=== PATIENT | female | born 1945 | race Caucasian/White ===

== ENCOUNTER 2024-01-12 11:37 | Inpatient (IN) | payer OTHER, SELFPAY ==
[2024-01-12] VITALS (11 sets, daily range): BP systolic 115–174; BP diastolic 47–80; BMI 23.0
--- NOTE | 2024-01-12 05:19 | ED.GENMED ---
History of Present Illness
General
Chief Complaint: Extremity Pain (non-traumatic)
Source: patient
Exam Limitations: none
Time Seen by Provider: 01/12/24 04:17
Nursing documentation reviewed up to this point in time: agreed with
Travel History
Have you had any contact with someone who has COVID-19?: No
Do you have any symptoms of coronavirus? Fever > 100 degrees, chills, cough, shortness of breath, sore throat, loss of taste or smell, muscle aches, or headache?: No
History of Present Illness
History of Present Illness:
78-year-old female with a past medical history notable for breast cancer with metastasis to the lung who presents for evaluation of chest pain and shortness of breath. Patient reports that she woke up from sleep around 2:30 AM with tingling in her
right arm that lasted for a few minutes and resolved. After that she developed a pressure sensation in her chest and some shortness of breath associated with some nausea. She says that the symptoms were persisting and so she decided to come to the
emergency room to be assessed. She says they have improved somewhat but have not completely resolved. She denies any recent cough or fevers/chills. No swelling or pain in the legs. Abdominal pain, vomiting, diarrhea. She denies any other
complaints.
Review of Systems
Review of Systems
All Other Systems: ROS reviewed and negative except as documented in HPI and ROS
Constitutional: Denies fever or chills
Respiratory: Reports trouble breathing; Denies cough
Cardiac: Reports chest pain; Denies diaphoresis, palpitations or syncope
ABD/GI: Reports nausea; Denies abdominal pain, vomiting or diarrhea
: Denies flank pain
Musculoskeletal: Denies neck pain or back pain
Neurological: Denies dizzy, headache, weakness or numbness
Phy Exam
Physical Exam
Physical Exam:
General: Awake, alert, oriented x3; anxious but no acute distress
Head: Normocephalic, atraumatic
Eyes: Conjunctiva normal, sclera anicteric
Throat: Airway intact, handling secretions
Neck: Trachea midline, supple without meningismus
Lungs: Clear to auscultation bilaterally, no wheezing, rales, rhonchi
Heart: Regular rate and rhythm, no murmurs, gallops, or rubs
Abd: Soft, non distended, nontender
Neuro: Cranial nerves grossly intact, speech fluid
Skin: no rash
Extremities: No edema in extremities, equal pulses in all extremities
Scores
Heart Failure Risk
Heart Failure Risk Score: Not Applicable
Heart Score for Chest Pain Patients
STEMI patient?: No
History: Slightly or Non-Suspicious
ECG: Normal
Age: >/= 65 years
Risk Factors: 1 or 2 Risk Factors
Troponin: </= Normal Limit
Heart Score for Chest Pain Patients: 3
Heart Score Risk: 2.5% MACE over next 6 weeks
PE Wells Score
Symptoms of DVT: No
No alternative diagnosis better explains the illness: No
Tachycardia with pulse > 100: No
Immobilization (>=3 days) or surgery within previous 4 weeks: No
Prior history of DVT or pulmonary embolism: No
Presence of hemoptysis: No
Presence of malignancy: Yes
Pulmonary Embolism Risk Score: 1
Probability of PE: Pt is low risk
Withdrawal Assessment of Alcohol
Withdrawal Assessment Completed?: Not applicable
Course
Orders/Labs/Results
Orders:
Orders
01/12/24 04:13
Electrocardiogram (*1) Urgent
Reason for Study: Chest Pain
EKG- Treatment ONCE
01/12/24 04:41
CT Chest Pe Study Urgent
Comment:
Reason For Exam: acute onset SOB, PMH lung ca
01/12/24 04:47
CXR2 [CR Chest - 2 Views ] Urgent
Comment:
Reason For Exam: chest pain
01/12/24 04:56
Complete Blood Count/With Diff Urgent
Comprehensive Metabolic Panel Urgent
D-Dimer Urgent
PTT Urgent
Prothrombin Time Urgent
Troponin I Urgent
01/12/24 06:34
PTT Urgent
Comment: Obtain baseline before beginning heparin infusion if not already collected
Aspirin Chewable [Low Strength Aspirin] 324 mg PO NOW STA
Heparin 3,500 units IV NOW STA
Pharmacy Request to Place See Dose Instructions PO NOW STA
Discontinue all Active Warfarin orders?: Yes
Nursing to Place Non Medication Order As Directed
Physician Order: PTT 6 hours after initial start of Heparin infusion
01/12/24 06:39
CARDIOLOGY CONSULT Urgent
Consulting Provider: Palmer Steward
Was physician already notified: Yes
01/12/24 06:45
Heparin 10821 Units/250 ml 25,000 units in 250 ml IV PER PROTOCOL
Weight to be used for heparin protocol in kilograms (kg):: 58.9
Protocol:: Cardiac Tx/Acute Coronary
PTT Goal Range to be used:: PTT 73 to 111 seconds
Order type:: Initial
INITIAL Infusion Dose (UNITS/KG/hr) & then follow protocol:: 12 units/kg/hr
Infusion Dose in UNITS/hr & then follow protocol (UNITS/hr):: 700
INFUSION RATE in mL/hr & then follow protocol (mL/hr):: 7
PTT less than or equal to 64 seconds:: Increase rate by 200 units/hr (+ 2 mL/hr)
PTT 64.1 to 72.9 seconds:: Increase rate by 100 units/hr (+ 1 mL/hr)
PTT 73 to 111 seconds:: Target Range. No change in rate.
PTT 111.1 to 130.9 seconds:: Decrease rate by 100 units/hr (- 1 mL/hr)
PTT 131 to 199.9 seconds:: HOLD for 1 hr. Then decrease rate by 200 units/hr (- 2 mL/hr)
PTT greater than or equal to 200 seconds:: HOLD for 2 hrs & Notify Provider. Then decrease by 200 units/hr (-
2 mL/hr)
Lab follow-up:: Each change, PTT q6h until 2 consecutive are therapeutic. Then PTT
daily.
01/12/24 07:[address] See Dose Instructions IV DIRECTED
01/12/24 08:00
Troponin I Urgent
Abnormal Lab Results
01/12/24
04:56
WBC 2.6 L 10^3/uL
(4.8-10.8)
RBC 2.78 L 10^6/uL
(4.20-5.40)
Hgb 10.7 L g/dL
(12.0-16.0)
Hct 30.3 L %
(37.0-47.0)
MCV 109.0 H fL
(81.0-99.0)
MCH 38.5 H pg
(27.0-31.0)
Absolute Neuts (auto) 1.2 L 10^3/uL
(1.4-6.5)
Absolute Lymphs (auto) 1.1 L 10^3/uL
(1.2-3.4)
D-Dimer 0.60 H ug/mlFEU
(0.00-0.50)
BUN 29 H mg/dl
(7-17)
Glucose 100 H mg/dl
(70-99)
Troponin I 0.133 H* ng/ml
Total Protein 6.2 L g/dl
(6.3-8.2)
01/12/24 04:56
01/12/24 04:56
Vital Signs
Initial and Last Documented VS:
Initial Vital Signs
Temp Pulse Resp BP Pulse Ox
36.6 C 56 18 174/80 98
01/12/24 04:07 01/12/24 04:07 01/12/24 04:07 01/12/24 04:07 01/12/24 04:07
Last Documented Vital Signs
Temp Pulse Resp BP Pulse Ox
36.6 C 53 12 152/55 99
01/12/24 04:07 01/12/24 06:45 01/12/24 06:45 01/12/24 06:34 01/12/24 06:45
MDM/Problems Addressed
Differential Diagnosis Includes:
ACS, PE, pneumothorax, pneumonia, cancer pain, anxiety/panic attack
MDM/Problems Addressed:
78-year-old female with history as above presents for evaluation of right arm tingling followed by chest pressure and shortness of breath for the past 90 minutes. Hypertensive but otherwise normal vitals here. Physical exam as above. EKG shows no
STEMI. Plan to place an IV check labs clinical CBC and CMP, troponin. She had a chest x-ray out of triage which shows no clear acute pathology; will check CTA to rule out PE. Will monitor on telemetry and continuous pulse oximetry and reassess
after the above.
Labs reviewed: CBC shows slight leukopenia and mild anemia�patient says he is a chronic issues related to her chemotherapy. CMP unremarkable. Patient chest pain-free, continue to monitor.
Lab called back patient's initial troponin elevated at 0.103. Will repeat at 3-hour betsy. CTA no signs of pulmonary embolism or other acute pathology. Concern for NSTEMI will treat with aspirin, heparin. Discussed with cardiology for
consultation. Discussed with hospitalist for admission.
Chronic conditions affecting care:
Metastatic cancer
Acute Exacerbation and/or Progression of Chronic Illness:
Acutely hypertensive improved without intervention continue to monitor but no emergent antihypertensive treatment indicated at present
Acute Exacerbation and/or Progression of Chronic Illness: HTN
*Radiology
Radiology exam reviewed: preliminary read by ED provider and radiology read reviewed
*Pulse Oximetry
Patient hypoxic: no
*EKG
Interpreted by ED Provider?: Yes
Heart Rate: 56
Rate: bradycardiac
Rhythm: sinus
Heth: normal axis
Interval: normal interval
QRS Pattern: normal QRS
Ischemia: no ischemia
*Critical Care Note
Total Time (30-74mins, 75-104mins- exclusive of procedures): Not Applicable
Data Reviewed
Source: patient, records and spouse
Patient Management
Discussion with other providers: Hospitalist (Discussed with hospitalist) and Brand Advocate (Discussed with cardiology)
Escalation/DeEscalation of care consider admission/obs:
Admission indicated
ED Attending Note
-
Portions of this chart may have been created with voice recognition software.� Occasional wrong word or��sound alike� substitutions may have occurred due to the inherent limitations of voice recognition software.
Discharge Plan
Departure
Patient Disposition: Admit
Date of Disposition: 01/12/24
Time of Disposition: 06:59
Admit to doctor: Nabeel
Presentation/result/management discussed w/ accepting MD/DO: Hospitalist
Discharge Problem:
Non-ST elevation MO (NSTEMI)
Prescriptions:
No Action
losartan 50 mg Tablet
50 mg PO DAILY
acetaminophen [Acetaminophen Extra Strength] 500 mg Tablet
500 mg PO QID PRN (Reason: pain)
letrozole 2.5 mg Tablet
2.5 mg PO DAILY
cholecalciferol (vitamin D3) [Vitamin D3] 25 mcg (1,000 unit) Capsule
25 mcg PO DAILY
Ibrance 125 mg Tablet
125 mg PO DAILY
Patient Comments:
21 days on, 7 days off
alprazolam
PO PRN PRN (Reason: anxiety)
Rx Instructions:
unknown dosage
Referrals:
Danielle Jackson MD [Family Provider] -
Interventions
Interventions:
*Risk Screen - Suicide Last Done: 01/12/24 04:07
*General Assessment Last Done: 01/12/24 05:14
*Neglect/Abuse Screening Last Done: 01/12/24 04:07
ED- Fall Risk Assessment Last Done: 01/12/24 06:01
*ED COVID-19 Vaccine History Last Done: 01/12/24 05:14
ED-Skin Assessment Last Done: 01/12/24 06:01
ED-Peripheral Vascular Assessment Last Done: 01/12/24 06:04
ED-Musculoskeletal Assessment Last Done: 01/12/24 06:01
ED- Cardiac Assessment Last Done: 01/12/24 06:01
[2024-01-12 05:35] LABS: % Basophils 1.6 % (0-2); % Eosinophils 1.2 % (0-6); % Lymphocytes 44.5 % (20.5-51.1); % Monocytes 6.6 % (1.7-9.3); % Neutrophils 46.1 % (42.2-75.2); Absolute Lymphocytes 1.1 10^3/uL (1.2-3.4); Absolute Monocytes 0.2 10^3/uL (0.1-0.6); Absolute Neutrophils 1.2 10^3/uL (1.4-6.5); Hematocrit 30.3 % (37.0-47.0); Hemoglobin 10.7 g/dL (12.0-16.0); Mean Corp Hgb Conc. 35.3 g/dL (33.0-37.0); Mean Corpuscular Hgb 38.5 pg (27.0-31.0); Mean Platelet Volume 9.9 fL (7.4-10.4); Nucleated Red Blood Cells % 0 %; Platelet Count 141 10^3/uL (130-400); Red Blood Cell Count 2.78 10^6/uL (4.20-5.40); Red Cell Dist. Width 12.4 % (11.5-14.5); White Blood Cell Count 2.6 10^3/uL (4.8-10.8)
[2024-01-12 05:42] LABS: ALT (SGPT) 14 U/L (0-35); AST (SGOT) 24 U/L (14-36); Albumin 3.8 g/dl (3.5-5.0); Alkaline Phosphatase 50 U/L (38-126); Blood Urea Nitrogen 29 mg/dl (7-17); Calcium 9.6 mg/dl (8.4-10.2); Carbon Dioxide 27 mmol/L (22-30); Chloride 103 mmol/L (98-107); Estimated Creatinine Clearance 49 ml/min; Glucose 100 mg/dl (70-99); Potassium 4.7 mmol/L (3.5-5.1); Sodium 137 mmol/L (135-145); Total Bilirubin 0.5 mg/dl (0.2-1.3); Total Protein 6.2 g/dl (6.3-8.2); eGFR > 60.00
[2024-01-12 05:53] LABS: Troponin I 0.133 ng/ml
[2024-01-12 06:18] LABS: INR 1.11; PT 14.1 Sec (11.4-14.6)
[2024-01-12 06:19] LABS: APTT 30.2 Sec (23.4-35.0)
[2024-01-12] MEDS: LOW STRENGTH ASPIRIN 324 MG PO (07:10)
[2024-01-12] MEDS: HEPARIN 3500 UNITS IV (07:21)
[2024-01-12] MEDS: HEPARIN 25000 UNITS/250 ML IV (07:22)
[2024-01-12 08:25] LABS: Troponin I 0.126 ng/ml
[2024-01-12 08:29] LABS: APTT > 200 Sec (23.4-35.0)
--- NOTE | 2024-01-12 08:55 | EDRN ---
Heparin bolus administered at 07:21 prior to second PTT being drawn at 07:41 and sent to lab which resulted in error of >200, original 05:00 PTT resulted at 30.2 prior to bolus administration. Lab notified.
--- NOTE | 2024-01-12 10:00 | CON.CAR ---
Addendum entered and electronically signed by Beverley Warner DO 01/12/24 13:26:
I saw and examined the patient.
The Workers Compensation Claims Analyst's note was reviewed and I agree with the note.
Comment: Patient is a 78-year-old female with past medical history of history of lumpectomies, diagnosed with breast cancer with mets to lung 2021, receiving ongoing chemotherapy through her oncologist at [place], Dr. Nate Galeano, HTN, anxiety, GERD
who presented to [facility] with complaints of chest discomfort/pressure. She states she initially had the discomfort on Wednesday while doing things around the house. She laid in bed for the rest of the day Wednesday and since has felt well until last
night around 2:30AM when discomfort woke her from sleep. She states this time was different than Wednesday as she then developed some pain down her R arm which she had not had before, causing her to come in. She also reports she had nausea associated
with event. She states the R arm pain lasted at max [address] negative for PE however did show some pneumonitis. Trops flat but elevated at 0.13, resulting in cardiology consultation. Last ischemic evaluation was low risk treadmill stress
test in 2017. No further chest pain during hospital evaluation. No further right arm pain.
General:�NAD in ED 31.
HEENT:�mmm
Respiratory:�Clear (anterolaterally) and Non Labored Respirations
Cardiac:�S1/S2 and Regular Rhythm. / SM. +Port
GI:�Soft, Non Tender, Non Distended and Normal Bowel Sounds
Musculoskeletal:�No Edema
Plan:
Chest discomfort/right arm discomfort of unclear etiology, concern for ischemic etiology
-Currently chest pain-free
-Mildly abnormal cardiac troponin, peak 0.133
-EKG sinus rhythm without acute ischemic changes
-Abnormal D-dimer with negative CTA for PE
-CTA chest also noted no calcific atherosclerotic plaque in the coronary arteries or thoracic aorta and no pericardial effusion. There was no calcification on the aortic valve. There is also an interval decrease in size of a 2.1 cm malignant
pulmonary nodule in the left upper lobe adjacent to the left hilum
-Continue IV heparin drip for 24 hours then discontinue
-Aspirin 81 mg daily
-Lipid profile: Triglycerides 92, LDL 86, HDL 78. Aortic atherosclerosis in the abdominal aorta noted on CT so we will start atorvastatin 10 mg daily
-Check 2D echo
-Inpatient Lexiscan nuclear stress test tomorrow
Breast cancer with recurrence now metastatic to the lung with ongoing chemotherapy through [facility] oncology
-Noted
Addendum entered and electronically signed by Brittani Voss PA-C 01/12/24 11:05:
currently on IV heparin. as pain improved, consider stopping.
on losartan 50mg daily as OP, consider addition of BB as BP will tolerate
Original Note:
Consultation
Consultation Request
Date/Time Consultation Performed: 01/12/24
Requesting Provider: Dr. Jeane Roblero
Performing Provider: Brittani Voss PA-C for Dr. Warner
Reason for Consultation: CP, elevated trop
Medical History
-
Chief Complaint: CP
History of Present Illness:
Patient is a 78-year-old female with past medical history of history of lumpectomies, diagnosed with breast cancer with mets to lung 2021, receiving ongoing chemotherapy through her oncologist at [place], Dr. Nate Galeano, HTN, anxiety, GERD who
presented to [facility] with complaints of chest discomfort/pressure. She states she initially had the discomfort on Wednesday while doing things around the house. She laid in bed for the rest of the day Wednesday and since has felt well until last night
around 2:30AM when discomfort woke her from sleep. She states this time was different than Wednesday as she then developed some pain down her R arm which she had not had before, causing her to come in. She also reports she had nausea associated with
event. She states the R arm pain lasted at max 10 minutes, chest discomfort is largely resolved. Chest CT negative for PE however did show some pneumonitis. Trops flat but elevated at 0.13, resulting in cardiology consultation. Last ischemic
evaluation was low risk treadmill stress test in 2017. She states she had a more recent work up after ER visit for SOB in 2021, but cardiac work up was negative and resulted in imaging showing her cancer. Denies recent changes to chemotherapy.
Currently on IV heparin.
PMH:
Breast cancer with mets to lung, diagnosed 2021, ongoing chemo through Dr. Waleska Mcgill
History of breast lumpectomies
HTN
anxiety
GERD
Past Medical History
Past Medical History: Other (in HPI)
Social History
Tobacco: Former Smoker (remote)
Employment: Retired
Family History
Family History: CAD (father with stent in his 80s) and Cancer
Allergies / Home Medications
Allergy/AdvReac Type Severity Reaction Status Date / Time
coconut Allergy Rash Verified 01/12/24 05:12
Medication Instructions Recorded Confirmed Type
acetaminophen 500 mg tablet 500 mg PO QIDPRN PRN mild pain 03/10/23 01/12/24 History
(Acetaminophen Extra Strength)
cholecalciferol (vitamin D3) 25 25 mcg PO DAILY 03/10/23 01/12/24 History
mcg (1,000 unit) capsule (Vitamin
D3)
letrozole 2.5 mg tablet 2.5 mg PO DAILY 03/10/23 01/12/24 History
losartan 50 mg tablet 50 mg PO DAILY 03/10/23 01/12/24 History
palbociclib 125 mg tablet (Ibrance) 125 mg PO UD 03/10/23 01/12/24 History
alprazolam 0.25 mg tablet (Xanax) 0.25 mg PO DAILYPRN PRN anxiety 01/12/24 01/12/24 History
diphenhydramine HCl 25 mg capsule 25 mg PO HS nasal congestion 01/12/24 01/12/24 History
(Benadryl)
Review of Systems
-
History Source: Patient
All other systems: Negative unless noted
Physical Exam
Vital Signs
Temp Pulse Resp BP Pulse Ox
97.8 F 50 16 137/59 99
01/12/24 04:07 01/12/24 08:30 01/12/24 08:30 01/12/24 08:00 01/12/24 08:30
Lab Results
01/12/24 04:56
01/12/24 04:56
Troponin I 0.126 ng/ml H* 01/12/24 07:41
Physical Exam
General: No Apparent Distress and Comfortable
HEENT: Normocephalic, Anicteric and Moist Mucous Membranes
Respiratory: Clear (anterolaterally) and Non Labored Respirations
Cardiac: S1/S2 and Regular Rhythm
GI: Soft, Non Tender, Non Distended and Normal Bowel Sounds
Musculoskeletal: No Clubbing, No Cyanosis and No Edema
Skin: Warm and Dry
Neuro: AO x 3
Impression / Plan
-
Primary Mold Filler And Drainer: none
Assessment:
Presentation with chest pressure, RUE pain
Elevated troponin
Pneumonitis by chest CT
Breast cancer with mets to lung, diagnosed 2021, ongoing chemo through Dr. Waleska Mcgill
History of breast lumpectomies
HTN
anxiety
GERD
Treadmill stress test 2017: low risk at 8 METS
Plan:
-Patient presents to ER with complaints of chest discomfort/arm pain
-trops elevated but flat in 0.12-0.13 range. chest discomfort largely resolved at present
-EKG SB without acute ST abnormalities
-chest CT negative for PE, with evidence of mild pneumonitis. treatment per primary service
-check echo
-add asa 81mg daily
-check CVE
-consider for ischemic evaluation pending results of echo, possibly as OP
Data Reviewed
-
EKG: Tracing Personally Visualized and interpreted
CT Scan: Report Reviewed by me
Medical Tests (Nuc Med, Echo etc): Report Reviewed by me
Labs: Labs Reviewed by me
Old Records: Reviewed
--- NOTE | 2024-01-12 10:40 | HPS.HSE ---
Family Physician
-
Family Physician: Danielle Jackson
Chief Complaint
-
Chest pain and shortness of breath
History of Present Illness
78 y/o F with PMHx:
Breast cancer with metastases to the lung (dx'd 2021, on chemo)
Essential hypertension
Gastroesophageal reflux disease
Anxiety
who p/w CCs CP and SOB. 4 days ago the patient, after exertion, developed 45 to 60 minutes of retrosternal, pressure-like chest pain associated with shortness of breath. She then had another episode around 230 this morning. This morning it was
associated with right arm pain and numbness. She denies any diaphoresis or palpitations. She denies any syncope. She denies a pleuritic component to the chest pain. Denies any other acute complaints.
Medical History
Past Medical History
Past Medical History: Reports Other (as per HPI)
Past Surgical History: Reports Other (N/A)
Social History
Tobacco: Former Smoker
Alcohol: None
Drug: None
Family History
Family History: Not pertinent
Allergies / Home Medications
Allergies reflects when Allergies were last updated in [facility].
Home Medications with original date entered in [facility]
Allergy/Medication List:
Allergies
Allergy/AdvReac Type Severity Reaction Status Date / Time
coconut Allergy Rash Verified 01/12/24 05:12
Home Medications
acetaminophen 500 mg tablet (Acetaminophen Extra Strength) 500 mg PO QIDPRN PRN mild pain 03/10/23
cholecalciferol (vitamin D3) 25 mcg (1,000 unit) capsule (Vitamin D3) 25 mcg PO DAILY 03/10/23
letrozole 2.5 mg tablet 2.5 mg PO DAILY 03/10/23
losartan 50 mg tablet 50 mg PO DAILY 03/10/23
palbociclib 125 mg tablet (Ibrance) 125 mg PO UD 03/10/23
alprazolam 0.25 mg tablet (Xanax) 0.25 mg PO DAILYPRN PRN anxiety 01/12/24
diphenhydramine HCl 25 mg capsule (Benadryl) 25 mg PO HS nasal congestion 01/12/24
Review of Systems
-
History Source: Patient
A 12 point ROS was completed and negative except as noted: Yes
Physical Exam
Vital Signs
Vital Signs
Temp Pulse Resp BP Pulse Ox
97.8 F 50 16 137/59 99
01/12/24 04:07 01/12/24 08:30 01/12/24 08:30 01/12/24 08:00 01/12/24 08:30
Physical Exam
General: Other (.)
Laboratory Results
-
01/12/24 04:56
01/12/24 04:56
Laboratory Results
PT 14.1 Sec (11.4-14.6) 01/12/24 04:56
INR 1.11 01/12/24 04:56
APTT > 200 Sec (23.4-35.0) H* 01/12/24 07:41
Total Bilirubin 0.5 mg/dl (0.2-1.3) 01/12/24 04:56
AST 24 U/L (14-36) 01/12/24 04:56
ALT 14 U/L (0-35) 01/12/24 04:56
Alkaline Phosphatase 50 U/L (38-126) 01/12/24 04:56
Troponin I 0.126 ng/ml H* 01/12/24 07:41
Impression/Plan
-
Gen: NAD, AAOx3, appears chronically ill.
Eyes: EOMI, no scleral icterus.
Neck: supple.
CV: RRR, +S1/S2, no m/r/g.
Resp: CTAB, no rales, wheezes, or rhonchi.
Abd: +BS, soft, NT, ND
Skin: No rashes.
Neuro: CN 2-12 intact, non-focal.
Psych: Normal mood and affect.
CTA chest:
1. � No CTA evidence for acute central pulmonary arterial embolus.
2. 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
3. � Interval decrease in size of a 2.1 cm malignant pulmonary nodule in the left upper lobe adjacent to the left hilum.
4. � Previous left breast lumpectomy and left axillary lymph node dissection.
Elevated Trop:
-ECG (read by me): SB @ 56 without acute ischemic changes
-CTA chest without PE, does show mild inflammatory interstitial pneumonitis
-top on differential diagnosis at this time is unstable angina
-cont to trend Trop
-cards following
-cont heparin gtt started in ER
-check echo
-monitor on tele
-start ASA
-reasonable to c/s pulm for mild inflammatory interstitial pneumonitis
-cardiology updated on opinion that most likely unifying diagnosis at this moment is unstable angina via [employer] at 1105
Other problems:
Breast cancer with metastases to the lung (dx'd 2021, on chemo): outpt follow up
Essential hypertension: cont Losartan
Gastroesophageal reflux disease: start PPI
Anxiety: Cont Xanax
FULL/heparin gtt/Tele/INPT
[2024-01-12 12:01] LABS: HDL Cholesterol 78 mg/dl; LDL Cholesterol, Calculated 86 mg/dl; Total Cholesterol 182 mg/dl (50-199); Triglyceride 92 mg/dl (10-149); Very Low Density Lipoprotein 18 mg/dl (0-30)
[2024-01-12] MEDS: NSS 1000 IV (13:24)
[2024-01-12 13:57] LABS: APTT 102.5 Sec (23.4-35.0)
[2024-01-12 14:12] LABS: Troponin I 0.083 ng/ml
--- NOTE | 2024-01-12 14:51 | CON.PUL ---
Consultation
Consultation Request
Date/Time Consultation Requested: 01-12-24
Date/Time Consultation Performed: 01-12-24
Requesting Provider: Hospitalist
Performing Provider: Dr Seymour
Reason for Consultation: pneumonitis
Medical History
-
Chief Complaint: chest pain
History of Present Illness:
Mrs Kari Garcia is a 78/W adm 01-12 with acute CP.
Seen by Cards, mgmt of ACS ongoing.
At ER, ^D-dimer but negative CTA except for very mild dependent changes prompting pulm consultation.
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 Denies dyspnea, cough, wheezing
Remote h/o smoking, not on home O2 or BDs
Past Medical History
Past Medical History: Other (see A&P for PMH/PSH)
Social History
Tobacco: Former Smoker
Alcohol: None
Drug: None
Employment: Retired
Family History
Family History: CAD
Allergies / Home Medications
Allergies
Allergy/AdvReac Type Severity Reaction Status Date / Time
coconut Allergy Rash Verified 01/12/24 05:12
Home Medications
Medication Instructions Recorded Confirmed Last Taken Type
acetaminophen 500 mg tablet 500 mg PO QIDPRN PRN mild pain 03/10/23 01/12/24 03/10/23 History
(Acetaminophen Extra Strength)
cholecalciferol (vitamin D3) 25 25 mcg PO DAILY Supplement 03/10/23 01/12/24 03/10/23 History
mcg (1,000 unit) capsule (Vitamin
D3)
letrozole 2.5 mg tablet 2.5 mg PO DAILY Hormonal Agent 03/10/23 01/12/24 01/12/24 History
losartan 50 mg tablet 50 mg PO DAILY Blood Pressure 03/10/23 01/12/24 01/12/24 History
palbociclib 125 mg tablet (Ibrance) 125 mg PO UD Cancer 03/10/23 01/12/24 01/11/24 History
alprazolam 0.25 mg tablet (Xanax) 0.25 mg PO DAILYPRN PRN anxiety 01/12/24 01/12/24 Unknown History
diphenhydramine HCl 25 mg capsule 25 mg PO HS nasal congestion 01/12/24 01/12/24 01/11/24 History
(Benadryl)
Review of Systems
-
History Source: Patient
All other systems: Negative unless noted
Cardiac: Chest Pain
Abdomen/GI: Nausea
Vitals / Labs / Diagnostic Testing
Vital Signs
Temp Pulse Resp BP Pulse Ox
97.9 F 58 18 153/67 98
01/12/24 12:42 01/12/24 12:42 01/12/24 12:42 01/12/24 12:42 01/12/24 12:42
Lab Data
01/12/24 04:56
01/12/24 04:56
Laboratory Results
01/12/24 01/12/24 01/12/24
04:56 07:41 13:36
PT 14.1
INR 1.11
APTT 30.2 > 200 H* 102.5 H
01/12/24
14:00
PT
INR
APTT Cancelled
Diagnostic Testing:
Physical Exam
-
HEENT: Normocephalic and Moist Mucous Membranes
Cardiovascular: Regular Rhythm, Murmur (n) and Peripheral Edema (n)
Respiratory: Clear and Non-Labored Respirations
GI: Non Distended and Non Tender
Neurology: AO x 3 and No Motor Deficits
Skin: Dry
General: Respiratory Distress (n)
Assessment
-
Assessment:
Mrs Kari Garcia is a 78/W adm 01-12 with acute CP. Seen by Cards, mgmt of ACS ongoing. At ER, ^D-dimer but negative CTA except for very mild dependent changes prompting pulm consultation. Known h/o metastatic breast cancer to lung, currently on
maintenance therapy with palbociclib and letrozole. Denies dyspnea, cough, wheezing
Impression:
ACS
Very mild dependent changes in lower lobes
Chronic JOEL pulm nodule, improved c/w Jun 2022
Leukopenia
Anemia
D-d normal for age
Troponin elevation
Conditions UTILITY OPERATOR:
Breast cancer, dx 2021, mets to lung, on chemotherapy at [facility], on palbociclib (ibrance) and letrozole
HTN
GERD
Anxiety
Remote h/o smoking
Plan:
ACS on medical mgmt by cards
Normal D-dimer for age
Negative chest CTA for PE
Very mild dependent changes in lower lobes
No dyspnea, cough, wheezing, fever
Likely not related to palbociclib
No clinically significant at this juncture
Chronic JOEL pulm nodule (known pulm met from breast cancer), improved c/w Jun 2022
Agree with observation off atbs, CSs, BDs
D/w Mrs Garcia
Diagnostic tests:
Chest CTA 01-12-24: no PE. Improved chronic irregular pulm nodule at JOEL c/w Jun 2022. No evidence of pneumonitis
[2024-01-12 17:16] LABS: Troponin I 0.085 ng/ml
[2024-01-12] MEDS: LIPITOR 10 MG PO (17:49)
[2024-01-12 19:55] LABS: APTT 74.9 Sec (23.4-35.0)
[2024-01-12] MEDS: BENADRYL 25 MG PO (21:50)
[2024-01-13 01:37] LABS: Troponin I 0.115 ng/ml
[2024-01-13 03:07] VITALS: BP 106/53
[2024-01-13 06:00] VITALS: BMI 21.7
[2024-01-13 06:34] LABS: APTT 70.5 Sec (23.4-35.0)
[2024-01-13 07:00] VITALS: BP 127/67
[2024-01-13] MEDS: NSS 1000 IV (08:11)
[2024-01-13] MEDS: LOW STRENGTH ASPIRIN 81 MG PO (08:11)
[2024-01-13] MEDS: FEMARA 2.5 MG PO (08:11)
[2024-01-13] MEDS: VITAMIN D3 (cholecalciferol) 25 MCG PO (08:14)
[2024-01-13] MEDS: COZAAR 50 MG PO (08:14)
[2024-01-13 09:34] LABS: Glycohemoglobin (HgbA1c) 5.6 % (4.0-5.6)
[2024-01-13] MEDS: LEXISCAN 0.400000000000000022 MG IV (10:52)
--- NOTE | 2024-01-13 10:52 | W.PN.HOSP.TC ---
Addendum entered and electronically signed by Frank Thompson MD 01/13/24 14:40:
Correction for typos: Patient's hemoglobin drop noted.� I just spoke to the patient over the phone.� She denies melena, hematochezia, or bruising.� She reports she has anemia at baseline due to chemotherapy.� This drop in hemoglobin is likely
dilutional as the patient received IV fluids.� I recommended that the patient have her hemoglobin checked in 4 days.� I explained she will need a prescription from her primary care physician or oncologist.� She verbally acknowledged understanding of
this.
Addendum entered and electronically signed by Frank Thompson MD 01/13/24 14:35:
Patient's hemoglobin drop noted. I just spoke to the patient over the phone. She denies melena, hematochezia, or bruising. She reports she has anemia at baseline due to chemotherapy. This drop in hemoglobin is likely dilutional as the patient
received IV fluids. I recommended that the patient have her hemoglobin checked in 4 days. I explained she will need a prescription from her primary care physician and oncologist. She verbally knowledge understanding of this.
Original Note:
Today's Communication/Plan
-
d/c
Assessment / Plan
Assessment / Plan
Gen: Remains NAD, AAOx3, appears chronically ill.
Eyes: EOMI, no scleral icterus.
Neck: supple.
CV: Remains RRR, +S1/S2, no m/r/g.
Resp: Remains CTAB, no rales, wheezes, or rhonchi.
Abd: +BS, soft, NT, ND
Skin: No rashes.
Neuro: CN 2-12 intact, non-focal.
Psych: Normal mood and affect.
CTA chest:
1. � No CTA evidence for acute central pulmonary arterial embolus.
2. 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
3. � Interval decrease in size of a 2.1 cm malignant pulmonary nodule in the left upper lobe adjacent to the left hilum.
4. � Previous left breast lumpectomy and left axillary lymph node dissection.
Echo:
1.� Normal left ventricular size and systolic function without regional wall
�motion abnormalities.� Estimated left ventricular ejection fraction is 60 to
�65%.� Normal diastolic function.
�2.� Normal right ventricular size and systolic function.
�3.� No significant valvular abnormalities.
�4.� No pericardial effusion.
Elevated Trop:
-ECG (read by me): SB @ 56 without acute ischemic changes
-CTA chest without PE, does show mild inflammatory interstitial pneumonitis
-Echo above and unremarkable
-Trop peaked at 0.133
-cards following
-pt seen by pulm, no intervention recommended from pulm standpoint
-cont heparin gtt started in ER
-monitor on tele
-cont ASA/statin
-Nuclear stress test was done today. As per discussion with Dr. Warner there was no pharmacologically reversible defects. The patient is medically cleared for discharge.
Other problems:
Breast cancer with metastases to the lung (dx'd 2021, on chemo): outpt follow up
Essential hypertension: cont Losartan
Gastroesophageal reflux disease: start PPI
Anxiety: Cont Xanax
Medically stable for discharge.
Total time spent on d/c = 33 min. This included today's physical exam, progress note, review of laboratory and diagnostic data, preparation of discharge documents and prescriptions, and discussions about the pt's hospital course and discharge plan
with the patient and other medical records secretary involved in the patient's care.
Anticipated Discharge: Today
Subjective/Interval History
-
Date of Service: January 13, 2024
Currently denies chest pain.
Objective Data
-
Labs:
Laboratory Results
01/13/24 01/13/24
05:59 12:41
APTT 70.5 H Pending
Vital Signs:
Vital Signs
Temp Pulse Resp BP Pulse Ox
97.9 F 55 16 127/67 97
01/13/24 07:00 01/13/24 07:00 01/13/24 07:00 01/13/24 07:00 01/13/24 07:59
I&O
01/12/24 01/13/24 01/14/24
06:59 06:59 06:59
Intake Total 1200 / 1200
Balance 1200 / 1200
[2024-01-13] MEDS: FLUSH (NSS) 1 FLUSH IV (10:54)
[2024-01-13 12:16] VITALS: BP 151/71
[2024-01-13 13:28] LABS: APTT 64.6 Sec (23.4-35.0)
--- NOTE | 2024-01-13 14:25 | W.PN.CARDCBS ---
Today's Communication / Plan
-
Outpatient cardiac follow-up arranged
Will sign off, recall if needed
Impression / Plan
-
Primary Certified Technician Specialist: none
Assessment:
Presentation with chest pressure, RUE pain
Elevated troponin
Pneumonitis by chest CT
Breast cancer with mets to lung, diagnosed 2021, ongoing chemo through Dr. Waleska Mcgill
History of breast lumpectomies
HTN
anxiety
GERD
Treadmill stress test 2017: low risk at 8 METS
Plan:
Atypical chest pain/right upper arm pain now resolved with low-level flat troponins
-Peak troponin 0.133
-No further chest discomfort. Stop IV heparin
-CTA chest without pulmonary embolism. Mild inflammatory interstitial pneumonitis noted in the lower lobes. Interval decrease in size of a 2.1 cm malignant pulmonary nodule. Previous left breast lumpectomy and axillary lymph node dissection
noted. Study also reported no calcification of aortic valve. No calcific atherosclerotic plaque in the coronary arteries or thoracic aorta and no pericardial effusion.
-2D echocardiogram 01/12/2024 with normal biventricular size and systolic function with no significant valve abnormalities and no pericardial effusion
-Preliminary results of Lexiscan nuclear stress test with fixed distal anterior defect likely breast attenuation without definite evidence of ischemia. Official report to follow
-Would continue aspirin 81 mg daily and new statin [lipid profile 01/12/2024 with LDL 86]
-Hemoglobin A1c 5.6%
-Outpatient cardiac follow-up to be arranged
New anemia with hemoglobin today 10.7, previously 13.5
-Stop IV heparin
-No obvious bleeding
-Defer workup to hospitalist
Hypertension with blood pressures mostly in range with a few elevated numbers
-Continue current medical therapy and monitor blood pressure trends
Breast cancer with recurrence� management through [facility]
Will sign off, recall if needed
Progress Note - Certified Technician Specialist
Subjective
Date of Service: January 13, 2024
Seen and examined. Overall feels well without recurrence of chest pain or arm discomfort no shortness of breath.
Objective
Labs:
01/12/24 04:56
01/12/24 04:56
Labs
Hgb 10.7 g/dL (12.0-16.0) L 01/12/24 04:56
Hct 30.3 % (37.0-47.0) L 01/12/24 04:56
Plt Count 141 10^3/uL (130-400) 01/12/24 04:56
PT 14.1 Sec (11.4-14.6) 01/12/24 04:56
INR 1.11 01/12/24 04:56
APTT 64.6 Sec (23.4-35.0) H 01/13/24 12:39
Sodium 137 mmol/L (135-145) 01/12/24 04:56
Potassium 4.7 mmol/L (3.5-5.1) 01/12/24 04:56
BUN 29 mg/dl (7-17) H 01/12/24 04:56
Creatinine 0.8 mg/dL (0.6-1.0) 01/12/24 04:56
Glucose 100 mg/dl (70-99) H 01/12/24 04:56
Troponins
01/12/24 01/12/24 01/12/24
04:56 07:41 13:36
Troponin I 0.133 H* 0.126 H* 0.083 H* D
01/12/24 01/12/24 01/13/24
16:48 18:37 01:08
Troponin I 0.085 H* Cancelled 0.115 H*
Vital Signs and I&O:
Vital Signs
Temp Pulse Resp BP Pulse Ox
97.9 F 59 18 151/71 99
01/13/24 12:16 01/13/24 12:16 01/13/24 12:16 01/13/24 12:16 01/13/24 12:16
Vital Signs
Temp Pulse Resp BP Pulse Ox
97.9 F 59 18 151/71 99
01/13/24 12:16 01/13/24 12:16 01/13/24 12:16 01/13/24 12:16 01/13/24 12:16
Intake & Output
01/11/24 01/12/24 01/13/24 01/14/24
06:59 06:59 06:59 06:59
Intake Total 1200 / 1200
Balance 1200 / 1200
Physical Exam
Physical Exam
General:�NAD
HEENT:�mmm
Respiratory:�Clear (anterolaterally) and Non Labored Respirations
Cardiac:�S1/S2 and Regular Rhythm. 2/6 SM. +Port
GI:�Soft, Non Tender, Non Distended and Normal Bowel Sounds
Musculoskeletal:�No Edema
--- NOTE | 2024-01-13 15:34 | W.DCSUMMARY ---
Discharge Summary
Discharge Data
Date of Admission: 01/12/24
Date of Discharge: 01/13/24
-
Pending Results: Yes
Additional Pending Results:
Final read of stress test.
Hospital Course
Primary diagnoses:
Nonmyocardial infarction troponin elevation
Secondary diagnoses:
Anemia of chronic disease
Breast cancer with metastases to the lung
Essential hypertension
Gastroesophageal reflux disease
Anxiety
Consultants:
Imaging:
CTA chest:
1. � No CTA evidence for acute central pulmonary arterial embolus.
2. 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
3. � Interval decrease in size of a 2.1 cm malignant pulmonary nodule in the left upper lobe adjacent to the left hilum.
4. � Previous left breast lumpectomy and left axillary lymph node dissection.
Echo:
1.� Normal left ventricular size and systolic function without regional wall
�motion abnormalities.� Estimated left ventricular ejection fraction is 60 to
�65%.� Normal diastolic function.
�2.� Normal right ventricular size and systolic function.
�3.� No significant valvular abnormalities.
�4.� No pericardial effusion.
Hospital course: 78-year-old female who presented with chief complaints of chest pain and shortness of breath as outlined in the H&P done yesterday. On admission the patient had a minimally elevated troponin which peaked at 0.133. ECG showed sinus
bradycardia @ 56 without acute ischemic changes. CT angiogram of the chest was without pulmonary embolism and did show some mild inflammatory interstitial pneumonitis. Echocardiogram above and unremarkable. Patient was on a heparin drip which was
stopped after she had a stress test that did not show any pharmacologically inducible ischemia. At the time of discharge the patient was chest pain-free. She was started on aspirin and statin. She was discharged in medically stable condition.
On the day of discharge the patient's hemoglobin drop of 13.5 to 10.7 was noted.� The patient denied melena, hematochezia, or bruising.� She reported that she has anemia at baseline due to chemotherapy.� This drop in hemoglobin was likely dilutional
as the patient received IV fluids.�It was recommended that the patient have her hemoglobin checked in 4 days.� It was explained to the patient that she will need a prescription from her primary care physician or oncologist.� She verbally
acknowledged understanding of this.
Unexpected rapid recovery.
Discharge Plan
-
Patient Disposition: Home (Routine Discharge)
Discharge Diagnosis/Procedures: Noncardiac chest pain
Condition: Good
Diet: Other diet
Additional Diets: Heart healthy
Activity: As tolerated
Driving Restrictions: As prior to admission
Bathing Restrictions: None
Blood Work: CBC and BMP in 4 days, script from PCP
Referrals:
Danielle Jackson MD [Family Provider] - in less than 1 week
Urszula Wilkins PA-C [Specified Professional Personl] - 02/10/24 2:20 pm (You have a cardiology follow up appointment at the [place] office. Please call with questions)
Prescriptions:
New
atorvastatin 10 mg Tablet
10 mg PO QPM Qty: 30 0RF
aspirin [Children's Aspirin] 81 mg Tablet,Chewable
81 mg PO DAILY Qty: 0 0RF
Continued
losartan 50 mg Tablet
50 mg PO DAILY
acetaminophen [Acetaminophen Extra Strength] 500 mg Tablet
500 mg PO QIDPRN PRN (Reason: mild pain)
letrozole 2.5 mg Tablet
2.5 mg PO DAILY
cholecalciferol (vitamin D3) [Vitamin D3] 25 mcg (1,000 unit) Capsule
25 mcg PO DAILY
Ibrance 125 mg Tablet
125 mg PO UD
Rx Instructions:
take for 21 days then 7 days off, patient currently as of 01/12/24 on her first day of 7 days off
alprazolam [Xanax] 0.25 mg Tablet
0.25 mg PO DAILYPRN PRN (Reason: anxiety)
diphenhydramine HCl [Benadryl] 25 mg Capsule
25 mg PO HS
Discharge Orders:
Discharge Patient (As Directed); Ordered 01/13/24
Ordered By: Frank Thompson
Discharge Date and Time
Discharge Date/Time: 01/13/24 15:31
[2024-01-13 21:06] LABS: Hepatitis C Antibody Negative (Negative)
== END 2024-01-13 15:31 | disposition home or self-care (01) | DRG 315 ==
LOC: 3 WEST ACU 11:37
PROVIDERS: Internal Medicine Cardiovascular Disease; ADMITTING PHYSICIAN Internal Medicine; CONSULT PHYSICIAN Internal Medicine Pulmonary Disease; EMERGENCY PHYSICIAN Emergency Medicine; FAMILY PHYSICIAN Internal Medicine; OTHER PHYSICIAN Internal Medicine Cardiovascular Disease
PROC: 3E073KZ Introduction of Other Diagnostic Substance into Coronary Artery, Percutaneous Approach (ICD-10-PCS; 2024-01-13)
PROC: 4A02XM4 Measurement of Cardiac Total Activity, External Approach (ICD-10-PCS; 2024-01-13)
DX: I5A Non-ischemic myocardial injury (non-traumatic) (principal); C78.00 Secondary malignant neoplasm of unspecified lung; C50.919 Malignant neoplasm of unspecified site of unspecified female breast; Z79.82 Long term (current) use of aspirin; Z87.891 Personal history of nicotine dependence; J98.4 Other disorders of lung; I10 Essential (primary) hypertension; F41.9 Anxiety disorder, unspecified; K21.9 Gastro-esophageal reflux disease without esophagitis; D63.8 Anemia in other chronic diseases classified elsewhere
CPT/HCPCS: 71046; 71275; 78452; 80053; 80061; 83036; 84484; 85025; 85379; 85610; 85730; 86803; 93005; 93017; 93306; 96374; 99285; A9500; J2785; Q9967

== ENCOUNTER → 2024-09-18 11:48 | Outpatient (REF) | payer OTHER, SELFPAY | LOC: HWRAD 11:48 | PROVIDERS: ATTENDING PHYSICIAN Internal Medicine | DX: M25.562 Pain in left knee (principal) | CPT/HCPCS: 73564 ==

== ENCOUNTER → 2025-05-09 10:47 | Outpatient (REF) | payer OTHER, SELFPAY | LOC: HWRAD 10:47 | PROVIDERS: ATTENDING PHYSICIAN Internal Medicine | DX: R09.89 Other specified symptoms and signs involving the circulatory and respiratory systems (principal) | CPT/HCPCS: 93880 ==